=== PATIENT | male | born 1950 | race African-American/Black ===

== ENCOUNTER 2019-10-10 15:56 | Inpatient (IN) | payer MEDICARE, MEDICAID ==
[~2019-10-10] VITALS: Ht 167.6 cm; Wt 63.5 kg
[2019-10-10] MEDS: SODIUM CHLORIDE 0.9% 1,000 ML IV SCH (02:30)
[~2019-10-10 15:56] MED LIST: ATOR-2 PO; FERR-43 PO; FURO40TA5 PO; LISI10TA5 PO
[2019-10-10 17:39] LABS: CHLORIDE 83 mEq/L (98-107)
[2019-10-10 17:45] LABS: ETHANOL BLOOD < 10 mg/dL
[2019-10-10] MEDS ORDERED: ACETAMINOPHEN 500MG TABLET PO ONE (18:00)
[2019-10-10] MEDS ORDERED: INSULIN REGULAR 0.5UNIT/ML SYR(NEO) IV ONE (18:15)
[2019-10-10] MEDS ORDERED: INSULIN REGULAR (HUMULIN R) 300UNITS/3ML IV NR (18:20)
[2019-10-10 18:24] LABS: BASOPHILS % 1.3 % (0.0-2.0); EOSINOPHILS % 0.1 % (0.0-5.0); HEMATOCRIT. 40.7 % (42.0-52.0); HEMOGLOBIN. 13.3 g/dL (14.0-18.0); LYMPHOCYTES % 15.9 % (20.0-50.0); MEAN CORPUSCULAR HEMOGLOBIN 30.9 pg (28.0-32.0); MEAN PLATELET VOLUME 13.7 fl (7.4-10.4); MONOCYTES % 12.1 % (2.0-8.0); NEUTROPHILS % 70.6 % (40.0-76.0); PLATELET 87 x1000/uL (130-400); RED BLOOD CELL COUNT 4.28 mill/uL (4.7-6.1); RED CELL DISTRIBUTION WIDTH 14.2 % (11.6-14.6)
[2019-10-10 18:29] LABS: *BARBITURATES SCREEN URINE NEGATIVE (NEGATIVE)
[2019-10-10 18:30] LABS: *BENZODIAZEPINES SCREEN URINE NEGATIVE (NEGATIVE); *COCAINE SCREEN URINE NEGATIVE (NEGATIVE); METHADONE URINE SCREEN NEGATIVE (NEGATIVE); OPIATES URINE SCREEN NEGATIVE (NEGATIVE); PHENCYCLIDINE URINE SCREEN NEGATIVE (NEGATIVE)
[2019-10-10 18:31] LABS: *AMPHETAMINES SCREEN URINE NEGATIVE (NEGATIVE); CANNABINOID URINE SCREEN NEGATIVE (NEGATIVE)
[2019-10-10] MEDS ORDERED: ACETAMINOPHEN 325MG TABLET PO PRN (21:30)
[2019-10-10] MEDS ORDERED: ZOLPIDEM TARTRATE 5MG TABLET PO PRN (21:30)
[2019-10-10] MEDS ORDERED: DEXTROSE 50% WATER 50ML SYRINGE IV PRN (21:30)
[2019-10-10] MEDS ORDERED: INSULIN LISPRO(HUMALOG)300 UNIT/3ML VIAL SUBCUT NR (22:44)
[2019-10-10] MEDS ORDERED: INSULIN LISPRO 100 UNITS/ML SUBCUT NR (22:51)
[2019-10-10] MEDS: INSULIN GLARGINE UD 100 UNITS/ML SYR SUBCUT SCH (22:56)
[2019-10-10 23:20] VITALS: BP 132/83
[2019-10-11 00:45] VITALS: BP 132/83
[2019-10-11 04:30] VITALS: BP 105/59
[2019-10-11] MEDS: BLOOD SUGAR DIAGNOSTIC STRIP TEST SCH ×4 (06:49→21:13)
[2019-10-11 06:53] LABS: CHLORIDE 95 mEq/L (98-107)
[2019-10-11 06:55] LABS: BASOPHILS % 0.6 % (0.0-2.0); EOSINOPHILS % 0.6 % (0.0-5.0); HEMATOCRIT. 41.8 % (42.0-52.0); HEMOGLOBIN. 14.3 g/dL (14.0-18.0); LYMPHOCYTES % 24.3 % (20.0-50.0); MEAN CORPUSCULAR HEMOGLOBIN 30.8 pg (28.0-32.0); MONOCYTES % 14.8 % (2.0-8.0); NEUTROPHILS % 59.7 % (40.0-76.0); RED BLOOD CELL COUNT 4.64 mill/uL (4.7-6.1); RED CELL DISTRIBUTION WIDTH 13.6 % (11.6-14.6)
[2019-10-11 07:35] VITALS: BP 103/61
[2019-10-11] MEDS: INSULIN LISPRO 100 UNITS/ML SUBCUT SCH ×4 (08:23→21:41)
[2019-10-11] MEDS: TAMSULOSIN HCL 0.4MG SR CAPSULE PO SCH (08:47)
[2019-10-11 09:29] LABS: PLATELET 97 x1000/uL (130-400)
[2019-10-11] MEDS: INSULIN GLARGINE UD 100 UNITS/ML SYR SUBCUT SCH ×2 (10:07→22:49)
[2019-10-11] MEDS: SODIUM CHLORIDE 0.9% 1,000 ML IV SCH (11:53)
[2019-10-11 12:07] VITALS: BP 110/60
[2019-10-11] MEDS: HYDROCODONE/ACETAMINOPHEN 5/325MG TABLET PO PRN (13:01)
[2019-10-11 16:00] VITALS: BP 112/62
[2019-10-11 20:00] VITALS: BP 108/70
[2019-10-11 23:29] LABS: CLARITY URINE CLEAR (CLEAR); COLOR URINE DARK YELLOW (YELLOW); KETONES URINE NEGATIVE (NEGATIVE); LEUKOCYTE ESTERASE URINE TRACE (NEGATIVE); NITRITE URINE NEGATIVE (NEGATIVE); OCCULT BLOOD URINE NEGATIVE (NEGATIVE); PROTEIN URINE 1+ (NEGATIVE); SPECIFIC GRAVITY URINE 1.039 (1.005-1.030)
[2019-10-12] VITALS: BP 110/72
[2019-10-12] MEDS: SODIUM CHLORIDE 0.9% 1,000 ML IV SCH ×2 (02:21→13:30)
[2019-10-12] MEDS: HYDROCODONE/ACETAMINOPHEN 5/325MG TABLET PO PRN ×2 (02:22→09:34)
[2019-10-12 04:00] VITALS: BP 103/57
[2019-10-12 05:56] LABS: HEMATOCRIT. 36.9 % (42.0-52.0); HEMOGLOBIN. 12.5 g/dL (14.0-18.0); MEAN CORPUSCULAR HEMOGLOBIN 30.8 pg (28.0-32.0); MEAN CORPUSCULAR VOLUME 91.3 fL (80.0-94.0); MEAN PLATELET VOLUME 13.8 fl (7.4-10.4); RED BLOOD CELL COUNT 4.04 mill/uL (4.7-6.1); RED CELL DISTRIBUTION WIDTH 13.9 % (11.6-14.6)
[2019-10-12 06:00] LABS: CHLORIDE 98 mEq/L (98-107)
[2019-10-12 08:00] VITALS: BP 135/71
[2019-10-12] MEDS: BLOOD SUGAR DIAGNOSTIC STRIP TEST SCH ×2 (08:01→11:51)
[2019-10-12] MEDS: TAMSULOSIN HCL 0.4MG SR CAPSULE PO SCH (08:11)
[2019-10-12] MEDS: INSULIN LISPRO 100 UNITS/ML SUBCUT SCH ×2 (08:12→11:51)
[2019-10-12] MEDS: INSULIN GLARGINE UD 100 UNITS/ML SYR SUBCUT SCH (09:36)
[2019-10-12 12:00] VITALS: BP 116/66
[2019-10-12 12:19] VITALS: BP_SYST 103; BP_SYST 116; BP_DIAS 66; BP_DIAS 68
[2019-10-12] MEDS ORDERED: HYDR-4001 MT (12:22)
[2019-10-12] MEDS ORDERED: INSULIN GLARGINE UD 100 UNITS/ML SYR SUBCUT SCH (22:00)
[2019-10-13 11:02] LABS: NUCLEATED RED BLOOD CELLS 1 /100 WBC
[2019-10-13 11:03] LABS: PLATELET ESTIMATE DECREASED
[2019-10-13 11:04] LABS: PLATELET 83 x1000/uL (130-400)
== END 2019-10-12 14:15 | disposition home or self-care (01) | DRG 420 ==
LOC: ER 15:56 → 6WST 20:35 → EDBEDREQ 21:14 → ENRESERV 21:48
PROVIDERS: ADMIT Internal Medicine; ATTEND Internal Medicine
DX: E11.00 Type 2 diabetes mellitus with hyperosmolarity without nonketotic hyperglycemic-hyperosmolar coma (NKHHC) (principal); E11.65 Type 2 diabetes mellitus with hyperglycemia; E44.0 Moderate protein-calorie malnutrition; E87.8 Other disorders of electrolyte and fluid balance, not elsewhere classified; I11.0 Hypertensive heart disease with heart failure; I50.9 Heart failure, unspecified; J44.9 Chronic obstructive pulmonary disease, unspecified; E87.1 Hypo-osmolality and hyponatremia; E78.00 Pure hypercholesterolemia, unspecified; F17.210 Nicotine dependence, cigarettes, uncomplicated; E78.5 Hyperlipidemia, unspecified; Z95.1 Presence of aortocoronary bypass graft; Z85.46 Personal history of malignant neoplasm of prostate; Z85.89 Personal history of malignant neoplasm of other organs and systems; Z79.84 Long term (current) use of oral hypoglycemic drugs; Z79.899 Other long term (current) drug therapy; Z71.51 Drug abuse counseling and surveillance of drug abuser; Z71.6 Tobacco abuse counseling
CPT/HCPCS: 36415; 71045; 74177; 80048; 80053; 80305; 80320; 81003; 82962; 83036; 83880; 84484; 85025; 93005; 93970; 96374; 99285; J1815; G0480